=== PATIENT | female | born 1970 | race Caucasian/White ===

== ENCOUNTER 2019-01-18 07:59 | Outpatient (CLI) | payer BC ==
--- NOTE | 2019-02-03 12:04 | MMO ---
Bilateral MAMMO Bilat Screen [facility]. CLINICAL HISTORY: Patient is 48 years old and is seen for screening. The patient has no family history of breast cancer. The patient has no personal history of cancer. VIEWS: The views performed were: bilateral craniocaudal with tomosynthesis and bilateral mediolateral oblique with tomosynthesis. FILMS COMPARED: The present examination has been compared to prior imaging studies performed at MAMMOGRAM FINDINGS: The breasts are heterogeneously dense, which could obscure a lesion on mammography. There are stable benign appearing calcifications seen in both breasts. There are no suspicious masses, suspicious calcifications, or new areas of architectural distortion. IMPRESSION: THERE IS NO MAMMOGRAPHIC EVIDENCE OF MALIGNANCY. A ROUTINE FOLLOW-UP MAMMOGRAM IN 1 YEAR IS RECOMMENDED. THE RESULTS OF THIS EXAM WERE SENT TO THE PATIENT. ACR BI-RADS Category 2 - Benign finding MAMMOGRAPHY NOTE: 1. A negative mammogram report should not delay a biopsy if a dominant of clinically suspicious mass is present. 2. Approximately 10% to 15% of breast cancers are not detected by mammography. 3. Adenosis and dense breasts may obscure an underlying neoplasm.
== END 2019-01-18 08:00 | disposition home or self-care (01) ==
LOC: BICMAMMO 07:59
PROVIDERS: ATTEND Family Medicine
DX: Z12.31 Encounter for screening mammogram for malignant neoplasm of breast (principal)
CPT/HCPCS: 77063; 77067

== ENCOUNTER 2020-10-26 10:29 | Outpatient (CLI) | payer BC | END 2020-10-26 10:30 | disposition home or self-care (01) | LOC: BICMAMMO 10:29 | PROVIDERS: ATTEND Family Medicine | DX: Z12.31 Encounter for screening mammogram for malignant neoplasm of breast (principal) | CPT/HCPCS: 77063; 77067 ==

== ENCOUNTER 2021-09-13 06:58 | Outpatient (CLI) | payer BC | END 2021-09-13 06:59 | disposition home or self-care (01) | LOC: BICULT 06:58 | PROVIDERS: ATTEND Family Medicine | DX: R74.01 Elevation of levels of liver transaminase levels (principal); R10.11 Right upper quadrant pain | CPT/HCPCS: 76700 ==

== ENCOUNTER 2022-06-25 10:37 | Outpatient (CLI) | payer BC | END 2022-06-25 10:38 | disposition home or self-care (01) | LOC: BICMAMMO 10:37 | PROVIDERS: ATTEND Family Medicine | DX: Z12.31 Encounter for screening mammogram for malignant neoplasm of breast (principal) | CPT/HCPCS: 77063; 77067 ==

== ENCOUNTER 2022-10-25 07:30 | Outpatient (CLI) | payer BC | END 2022-10-25 07:31 | disposition home or self-care (01) | LOC: BICCT 07:30 | PROVIDERS: ATTEND Family Medicine | DX: R10.84 Generalized abdominal pain (principal); D72.819 Decreased white blood cell count, unspecified | CPT/HCPCS: 74177 ==

== ENCOUNTER 2023-09-05 07:55 | Outpatient (CLI) | payer BC | END 2023-09-05 07:56 | disposition home or self-care (01) | LOC: BICMAMMO 07:55 | PROVIDERS: ATTEND Family Medicine | DX: Z12.31 Encounter for screening mammogram for malignant neoplasm of breast (principal) | CPT/HCPCS: 77063; 77067 ==

== ENCOUNTER 2023-10-21 14:10 | Outpatient (CLI) | payer BC ==
[~2023-10-21 14:10] MED LIST: Iopamidol 370 76% 100 ML VIAL ONE
== END 2023-10-21 14:11 | disposition home or self-care (01) ==
LOC: CT 14:10
PROVIDERS: ATTEND Family Medicine
DX: K85.90 Acute pancreatitis without necrosis or infection, unspecified (principal); K76.89 Other specified diseases of liver
CPT/HCPCS: 74177; Q9967

== ENCOUNTER 2023-11-10 08:10 | Outpatient (CLI) | payer BC | END 2023-11-10 08:11 | disposition home or self-care (01) | LOC: MRI 08:10 | PROVIDERS: ATTEND Family Medicine | DX: K83.1 Obstruction of bile duct (principal); K85.10 Biliary acute pancreatitis without necrosis or infection; K76.89 Other specified diseases of liver | CPT/HCPCS: 74181 ==

== ENCOUNTER 2024-04-10 16:06 | Outpatient (CLI) | payer BC | END 2024-04-10 16:07 | disposition home or self-care (01) | LOC: SCSRAD 16:06 | PROVIDERS: ATTEND Family Medicine | DX: R07.9 Chest pain, unspecified (principal) | CPT/HCPCS: 71046 ==

== ENCOUNTER 2024-09-23 09:07 | Outpatient (CLI) | payer BC | END 2024-09-23 09:08 | disposition home or self-care (01) | LOC: BICMAMMO 09:07 | PROVIDERS: ATTEND Family Medicine | DX: Z12.31 Encounter for screening mammogram for malignant neoplasm of breast (principal) | CPT/HCPCS: 77063; 77067 ==